=== PATIENT | male | born 1965 | race Caucasian/White ===

== ENCOUNTER 2019-11-28 06:19 | Emergency (ER) | payer OTHER ==
--- NOTE | 2019-11-28 06:27 | PDOC ---
History of Present Illness - General Chief Complaint: Pain, Acute Stated Complaint: RT WRIST/HAND PAIN Time Seen by Provider: 11/28/19 06:27 History Source: Patient Exam Limitations: No Limitations - History of Present Illness Initial Comments: 11/28/19 06:46 Pain began yesterday on the radial side of the wrist. 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 He has never experienced this in the wrist before, but he has had a shopulder tendonitis in the past that felt like this. Pt states that the original small are of pain at the radial side of the wrist took over the entire wrist. Pt has exquisite tenderness with palpation over the volar aspact and with supination or pronation or passive stretching and extension of the right fi ngers. Occurred: reports: yesterday Severity: reports: moderate, severe Upper Extremity Pain Location: right: 2nd finger (cold pale fingers), 3rd finger (" " " ), 4th finger (" " "), 5th finger (" " "), hand (volar pain when supinating and pronating), wrist (swelling on the volar aspect) Method of Injury: reports: unknown Modifying Factors: improves with: None Extremity Pain Location - Extremity Pain Location Extremity Pain Locations: right: hand Past History - Travel History Traveled outside of the country in the last 30 days: No Close contact w/someone who was outside of country & ill: No - Medical History Allergies/Adverse Reactions: Allergies Allergy/AdvReac Type Severity Reaction Status Date / Time Iodinated Contrast Media Allergy Severe Difficulty Verified 11/11/13 08:32 [Iodinated Contrast Media - Breathing IV Dye] Home Medications: Ambulatory Orders Amlodipine Besylate 10 mg PO DAILY 11/28/19 Lisinopril [Prinivil] 20 mg PO DAILY 11/28/19 Naproxen [Naprosyn -] 500 mg PO BID PRN #14 tablet 11/28/19 Anemia: No Asthma: Yes ( CHILD) Cancer: No Cardiac Disorders: No CVA: No COPD: No CHF: No Dementia: No Diabetes: No GI Disorders: Yes (GERD) Disorders: No HTN: Yes Hypercholesterolemia: No Liver Disease: No Seizures: No Thyroid Disease: No - Surgical History Abdominal Surgery: No Appendectomy: No Cardiac Surgery: No Cholecystectomy: No Lung Surgery: No Neurologic Surgery: No Orthopedic Surgery: No - Psycho-Social/Smoking History Smoking Status: No Smoking History: Never smoked Have you smoked in the past 12 months: No Number of Cigarettes Smoked Daily: 0 If you are a former smoker, when did you quit?: 2007 Review of Systems - Review of Systems Able to Perform ROS?: Yes Is the patient limited Slovak proficient: No Constitutional: No: Symptoms Reported, See HPI, Chills, Diaphoresis, Fever, Loss of Appetite, Malaise, Night Sweats, Weakness, Weight Stable, Unintentional Wgt. Loss, Unexplained wgt Loss, Other HEENTM: No: Symptoms Reported, See HPI, Eye Pain, Blurred Vision, Tearing, Recent change in vision, Double Vision, Cataracts, Ear Pain, Ocular Prothesis, Ear Discharge, Nose Pain, Nose Congestion, Tinnitus, Nose Bleeding, Hearing Loss, Throat Pain, Throat Swelling, Mouth Pain, Dental Problems, Difficulty Swallowing, Mouth Swelling, Other Respiratory: No: Symptoms reported, See HPI, Cough, Orthopnea, Shortness of Breath, SOB with Exertion, SOB at Rest, Stridor, Wheezing, Productive cough, Hemoptysis, Other ABD/GI: No: Symptoms Reported, See HPI, Abdominal Distended, Abd. Pain w/ defecation, Blood Streaked Bowels, Constipated, Diarrhea, Difficulty Swallowing, Nausea, Poor Appetite, Poor Fluid Intake, Rectal Bleeding, Vomiting, Indigestion, Abdominal cramping, Tarry Stools, Other : No: Symptoms Reported, See HPI, Burning, Dysuria, Discharge, Frequency, Flank Pain, Hematuria, Incontinence, Pain, Urgency, Testicular Mass, Testicular Swelling, Lesions, Testicular Pain, Other Musculoskeletal: No: Symptoms Reported, See HPI, Back Pain, Gout, Joint Pain, Joint Swelling, Muscle Pain, Muscle Weakness, Neck Pain, Joint Stiffness, Other Integumentary: No: Symptoms Reported, See HPI, Bruising, Change in Color, Change in Hair/Nails, Dryness, Erythema, Flushing, Lesions, Lumps, Pallor, Pruritus, Rash, Sweating, Other Neurological: No: Symptoms reported, See HPI, Headache, Numbness, Paresthesia, Pre-Existing Deficit, Seizure, Tingling, Tremors, Weakness, Unsteady Gait, Ataxia, Dizziness, Other *Physical Exam - Vital Signs Last Vital Signs Temp Pulse Resp BP Pulse Ox 98.1 F 60 16 141/80 100 08/01/20 06:23 11/28/19 06:23 11/28/19 06:23 11/28/19 06:23 11/28/19 06:23 - Physical Exam General Appearance: Yes: Nourished, Appropriately Dressed, Mild Distress HEENT: positive: EOMI, JORJE, Normal ENT Inspection, Normal Voice Neck: positive: Trachea midline, Supple Respiratory/Chest: positive: Lungs Clear, Normal Breath Sounds Cardiovascular: positive: Regular Rhythm, Regular Rate, S1, S2 Gastrointestinal/Abdominal: positive: Flat, Soft Musculoskeletal: positive: Normal Inspection Extremity: positive: Coldness (right hand fingers are cold) Integumentary: positive: Normal Color, Dry, Warm Neurologic: positive: plate maker zinc II-XII NML intact, Fully Oriented, Alert, Normal Mood/Affect, Normal Response, Motor Strength 5/5, Other (pain in the right hand and wrist; so weakness secondary to pain) Medical Decision Making - Medical Decision Making 11/28/19 06:48 Pt placed in miarnda wrap; ice applied; lidoderm patch applied; percocets x 2 given. Pt awaiting XRAY once the xray dept opens after 7am Pt is resting He will be signed out to the day ER doc. Discharge - Discharge Information Problems reviewed: Yes Clinical Impression/Diagnosis: Wrist pain Condition: Stable Disposition: HOME - Additional Discharge Information Prescriptions: Naproxen [Naprosyn -] 500 mg PO BID PRN #14 tablet PRN Reason: Pain - Follow up/Referral Referrals: Yariel Christianson MD [Primary Care Provider] - Ted Brower MD [Staff Physician] - Sal Olsen MD [Staff Physician] - John Pierson DO [Staff Physician] - - Patient Discharge Instructions Patient Printed Discharge Instructions: DI for Wrist Pain Additional Instructions: Please apply ice 20 min on and 20 min off. Please take tylenol or motrin as needed for pain. If you take motrin please take it with food or milk. Please wear the wrist splint and please make a follow up appointment with your PMD and the orthopedist for follow up. Please keep the arm elevated today. Please return to the ER with any further concerns or complaints. - Post Discharge Activity
[2019-11-28 06:29] VITALS: BP 141/80; PULSE 60; TEMP 98.1; BMI 29.8
[2019-11-28] MEDS ORDERED: LIDOCAINE 5% TOPICAL PATCH TP ONE (06:31)
[2019-11-28] MEDS ORDERED: LIDOCAINE 5% TOPICAL PATCH ONE (06:37)
--- NOTE | 2019-11-28 07:22 | PDOC ---
*Physical Exam - Vital Signs Last Vital Signs Temp Pulse Resp BP Pulse Ox 98.1 F 60 16 141/80 100 11/28/19 06:23 11/28/19 06:23 11/28/19 06:23 11/28/19 06:23 11/28/19 06:23 - Physical Exam 11/28/19 07:26 gen: [id number], nad ext: R wrist with miranda wrap, brisk cap refill, sensation intact, ttp over the volar aspect of the wrist, no ttp over the anatomic snuff box, pulses intact, +tinels sign, ambulatory with a steady gait ED Treatment Course - Medications Given in the ED: ED Medications Discontinued Medications Generic Name Dose Route Start Last Admin Trade Name Freq PRN Reason Stop Dose Admin Lidocaine 1 patch 11/28/19 06:31 11/28/19 06:41 Lidoderm Patch - TP 11/28/19 06:32 1 patch ONCE ONE Administration Oxycodone/Acetaminophen 2 combo 11/28/19 06:31 11/28/19 06:41 Percocet 5/325 - PO 11/28/19 06:32 2 combo ONCE ONE Administration Medical Decision Making - Medical Decision Making 11/28/19 07:31 a/p: 54yo male who is RHD with R wrist pain x 1 day -denies trauma -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 -volar pain across the carpal tunnel space -+tinels -suspect pain from carpal tunnel syndrome -recommend a brace and orthopedic follow up -pain currently controlled in the er -pt signed out from the prior attending pending xray read 11/28/19 07:46 no acute fx seen, mild arthritis, wet read, pending official read pt given percocet, lidoderm lighter captain, still with some discomfort pt given toradol and feels better discussed wearing a wrist splint suspect tendonitis vs arthritis discussed follow up with his PMD answered all questions, stable for dc to home Discharge - Discharge Information Problems reviewed: Yes Clinical Impression/Diagnosis: Wrist pain Condition: Stable Disposition: HOME - Admission No - Additional Discharge Information Prescriptions: Naproxen [Naprosyn -] 500 mg PO BID PRN #14 tablet PRN Reason: Pain - Follow up/Referral Referrals: Yariel Christianson MD [Primary Care Provider] - Ted Brower MD [Staff Physician] - Sal Olsen MD [Staff Physician] - John Pierson DO [Staff Physician] - - Patient Discharge Instructions Patient Printed Discharge Instructions: DI for Wrist Pain Additional Instructions: Please apply ice 20 min on and 20 min off. Please take tylenol or motrin as needed for pain. If you take motrin please take it with food or milk. Please wear the wrist splint and please make a follow up appointment with your PMD and the orthopedist for follow up. Please keep the arm elevated today. Please return to the ER with any further concerns or complaints. - Post Discharge Activity
[2019-11-28] MEDS ORDERED: KETOROLAC TROMETHAMINE 60 MG/2 ML VIAL IM ONE (07:37)
[2019-11-28] MEDS ORDERED: KETOROLAC TROMETHAMINE 60 MG/2 ML VIAL ONE (07:39)
[2019-11-28] MEDS ORDERED: LIDOCAINE PATCH REMOVAL MC SCH (22:00)
== END 2019-11-28 07:52 | disposition home or self-care (01) ==
LOC: FER 06:19
PROC: 3E0234Z Introduction of Serum, Toxoid and Vaccine into Muscle, Percutaneous Approach (ICD-10-PCS; principal; 2019-11-28)
DX: M25.531 Pain in right wrist (principal)
CPT/HCPCS: 73110-TC-RT-FY; 73130-TC-RT-FY; 99285-25